=== PATIENT | female | born 1955 | race African-American/Black ===

== ENCOUNTER 2016-09-03 17:26 | Emergency (ER) | payer OTHER ==
[~2016-09-03] VITALS: Ht 144.8 cm; Wt 52.2 kg
[2016-09-03] MEDS ORDERED: MELOXICAM7.5 MG OR (18:28)
[2016-09-03] MEDS ORDERED: INSU100I2 SC (18:28)
[2016-09-03] MEDS ORDERED: METFORMIN ER1000 MG PO (18:29)
[2016-09-03] MEDS ORDERED: METOPROLOL25 M1 OR (18:29)
[2016-09-03] MEDS ORDERED: LOVASTATIN20 MG OR (18:29)
[2016-09-03] MEDS ORDERED: CLOP75TA2 PO (18:29)
[2016-09-03 19:15] LABS: PLATELET COUNT 332 K/uL (152-353)
[2016-09-03 19:18] LABS: POTASSIUM 3.4 mmol/L (3.6-5.2); SODIUM 135 mmol/L (136-145)
[2016-09-03 20:41] VITALS: BP 136/70; TEMP 98.3
== END 2016-09-03 20:43 | disposition left against medical advice (07) ==
LOC: ED 17:26
PROVIDERS: Specialist
DX: R07.89 Other chest pain (principal); I45.10 Unspecified right bundle-branch block
CPT/HCPCS: 36415; 36600; 80053; 80307; 81000; 82805; 83735; 84100; 84484; 85027; 85379; 93005; 99284; G0479